=== PATIENT | male | born 1965 | race Caucasian/White ===

== ENCOUNTER 2016-10-19 20:02 | Emergency (ER) | payer MEDICAID ==
[2016-10-19] MEDS ORDERED: KETOROLAC TROMETHAMINE 60 MG/2 ML VIAL IM ONE ×2 (20:24→20:27)
--- NOTE | 2016-10-19 20:36 | ERNOTE ---
Upper Extremity HPI - Narrative Date of Service: 10/19/16 - General Extremities Pain Location: elbow: left Time Seen by Provider: 10/19/16 20:11 Source: patient Exam Limitations: no limitations - Immun/Allergies/Home Medications Immunizations: IMMUNIZATION HX Immunizations Up to Date Yes History of Influenza Vaccine No Hx Pneumococcal Vaccination No Allergies/Adverse Reactions: Allergies Allergy/AdvReac Type Severity Reaction Status Date / Time No Known Drug Allergies Allergy Verified 10/19/16 20:10 Home Medications: HOME MEDICATIONS buPROPion HCL [Wellbutrin] 300 mg PO DAILY 06/21/15 [Last Taken Unknown] HYDROcodone/ACETAMINOPHEN [Vicodin 5-300 mg Tablet] 1 tab PO Q6H PRN 10/19/16 [ Last Taken Unknown] Naproxen Sodium [Anaprox DS] 550 mg PO Q12H PRN #14 tablet 10/19/16 [Last Taken Unknown] Tiotropium [place] [Spiriva] 18 mcg IH DAILY 10/19/16 [Last Taken Unknown] clonazePAM [Klonopin] 2 mg PO QID 10/19/16 [Last Taken Unknown] - Pain Score Pain Score #1 Pain Score: 7 - History of Present Illness Narrative: Patient is a 51 year old male who presents to the ED with complaints of numbness and pain to left elbow x 10 days. States numbness is radiating down into left hand. Denies trauma or injury. Good ROM to left elbow and hand/ wrist. Equal hand grasp yet slight weakness noted to left 4th and 5th digits. Takes chronic Vicodin at home for chronic back pain. Date (Duration): 10/09/16 Occurred: other - 10 days ago Severity: mild Method of Injury: Reports: unknown Reason for Fall: Denies: fainted, lightheaded, lost balance, slipped, tripped Loss of Consciousness: Denies: no loss of consciousness, dazed, still comatose Modifying Factors - (Worsens): Reports: jarring, movement Associated Symptoms: Reports: tingling, numbness distally Other Injuries: Reports: none Prior Treament: Reports: recently seen - seen by primary physician and [facility] Review of Systems - Review of Systems Constitutional: Present: no symptoms reported EYE: Present: no symptoms reported ENT: Present: no symptoms reported Respiratory: Present: no symptoms reported Cardiology: Present: no symptoms reported Gastrointestinal/Abdominal: Present: no symptoms reported Genitourinary: Present: no symptoms reported Musculoskeletal: Present: joint pain - left lateral elbow area. Absent: back pain, muscle pain, muscle stiffness, neck pain, joint swelling Skin: Present: no symptoms reported Neurological: Present: weakness - weaker left 4th and 5th digit, numbness - left elbow down to left hand Endocrine: Present: no symptoms reported Hematologic/Lymphatic: Present: no symptoms reported Psych: Present: no symptoms reported - Patient's Past Medical History Patient History - Medical: Anxiety, Chronic Pain, Other Patient History - Cardiac/Respiratory: No pertinent hx Patient History - Cancer: No Hx of Cancer Patient History - Surgical Procedures: Other Patient History - Other: None - Social History Living Situations: alone Abuse History: No History of abuse Psych History: Hx of Anxiety Smoking Status: Current every day smoker Alcohol Use: none Drug Use: none - Immunizations Immunizations Up to Date: Yes Hx Pneumococcal Vaccination: No History of Influenza Vaccine: No Physical Exam - Physical Exam General Appearance: Present: wd/wn, alert, no apparent distress Head Exam: Present: normal inspection, no evidence of injury Eye Exam: Normal inspection: bilateral, PERRL: bilateral, EOMI: bilateral Ears, Nose, Throat: Present: normal ENT inspection Neck: Present: normal inspection, nontender Respiratory: Present: no respiratory distress, normal breath sounds, no accessory muscle use, chest nontender, lungs clear - clear BUL and diminished bilateral bases Cardiovascular/Chest: Present: regular rate, rhythm, no murmur, normal peripheral pulses Peripheral Pulses: N=norm/S=strong/W=weak/B=bound/A=absent: Radial (R): Normal, Radial (L): Normal Gastrointestinal/Abdominal: Present: normal bowel sounds, nontender Rectal Exam: Present: deferred Male Genitals Exam: Present: deferred Back Exam: Present: normal inspection, other - chronic back pain Extremity Exam: Present: normal inspection, normal range of motion, no edema Neurological Exam: Present: alert, oriented, normal mood/affect, no motor/ sensory deficits Skin Exam: Present: normal color, warm/dry Lymphatic Exam: Present: no adenopathy ED Progress - Vital Signs Patient's Vital Signs:: I have reviewed the patient's vital signs. Vital Signs: Vital Signs 10/19/16 20:05 Temperature 36.5 C Pulse Rate 76 Respiratory 16 Rate Blood Pressure 106/62 O2 Sat by Pulse 100 Oximetry - X-Ray X-Ray #1 X-Ray: elbow Interpretation: Interp. by me - no acute fractures, Reviewed by me - Progress/Reassessment Chief Complaint: Upper Extremity Injury/Problem Departure Clinical Impression: Cubital tunnel syndrome on left - Departure Disposition: Home Follow Up Needed Condition: Good Instructions: Pinched Nerve Additional Instructions: Take Anaprox as directed. Follow up with physician as needed. Referrals: Willian Soria DO [Primary Care Provider] - Prescriptions: Naproxen Sodium [Anaprox DS] 550 mg PO Q12H PRN #14 tablet PRN Reason: Pain
[2016-10-19 22:05] VITALS: BP 108/70
== END 2016-10-19 21:15 | disposition home or self-care (01) ==
LOC: ER 20:02
DX: G56.22 Lesion of ulnar nerve, left upper limb (principal); F17.200 Nicotine dependence, unspecified, uncomplicated; F41.9 Anxiety disorder, unspecified

== ENCOUNTER 2016-12-29 09:45 | Emergency (ER) | payer MEDICAID ==
[2016-12-29 10:15] VITALS: BP 98/70
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
== END 2016-12-29 10:50 | disposition home or self-care (01) ==
LOC: ER 09:45
DX: M54.9 Dorsalgia, unspecified (principal); G89.29 Other chronic pain; F41.9 Anxiety disorder, unspecified; F17.200 Nicotine dependence, unspecified, uncomplicated